=== PATIENT | male | born 1945 | race Caucasian/White ===

== ENCOUNTER 2018-09-30 15:28 | Inpatient (IN) | payer MEDICARE, BC ==
--- NOTE | 2018-09-30 15:45 | ED ---
Palpitations / Dysrhythmia - HPI Summary HPI Summary: This patient is a 73 year old M brought in by EMS to [facility] c/o dizziness for the last week. The patient was seen at the [facility] and sent for Afib. The patient rates the pain 1/10 in severity. He states he has also had SOB with self-measured tachycardia. He compares the SOB with one similar to just finishing a foot race. Patient reports fatigue, nausea, splitting headache , and diaphoresis. Patient denies vomiting and near syncope. He is on an ABX currently and takes 81 mg ASA daily. Father had a KS at 46 and mother did at 78. - History of Current Complaint Chief Complaint: EDDysrhythmPalp Time Seen by Provider: 09/30/18 15:36 Hx Obtained From: Patient Onset/Duration: Lasting Weeks, Still Present Timing: Constant Severity Initially: Moderate Severity Currently: Moderate Character: Fast Associated Signs & Symptoms: Dizzy, Shortness of Breath - Allergy/Home Medications Allergies/Adverse Reactions: Allergies Allergy/AdvReac Type Severity Reaction Status Date / Time No Known Allergies Allergy Verified 09/30/18 15:33 PMH/Surg Hx/FS Hx/Imm Hx Endocrine/Hematology History: Denies: Hx Diabetes, Hx Thyroid Disease Cardiovascular History: Reports: Hx Hypertension Denies: Hx Auto Implanted Cardiovert Defib, Hx Congestive Heart Failure Respiratory History: Denies: Hx Lung Cancer Sensory History: Reports: Hx Contacts or Glasses Opthamlomology History: Reports: Hx Contacts or Glasses Neurological History: Denies: Hx Spinal Cord Injury Psychiatric History: Denies: Hx [facility] Tx - Surgical History Surgery Procedure, Year, and Place: L shoulder replacement, hernia repair Infectious Disease History: No Infectious Disease History: Denies: Traveled Outside the [place] in Last 30 Days - Family History Known Family History: Positive: Cardiac Disease, Hypertension - Social History Alcohol Use: Occasionally Substance Use Type: Reports: None Smoking Status (MU): Former Smoker Review of Systems Positive: Fatigue, Skin Diaphoresis Positive: Palpitations Positive: Shortness Of Breath Positive: Nausea. Negative: Vomiting Positive: Headache. Negative: Syncope All Other Systems Reviewed And Are Negative: Yes Physical Exam - Summary Physical Exam Summary: VITAL SIGNS: Reviewed. GENERAL: Patient is a well-developed and elderly male who is lying comfortable in the stretcher. Patient is not in any acute respiratory distress. HEAD AND FACE: No signs of trauma. No ecchymosis, hematomas or skull depressions. No sinus tenderness. EYES: PERRLA, EOMI x 2, No injected conjunctiva, no nystagmus. EARS: Hearing grossly intact. Ear canals and tympanic membranes are within normal limits. MOUTH: Oropharynx within normal limits. NECK: Supple, trachea is midline, no adenopathy, no JVD, no carotid bruit, no c- spine tenderness, neck with full ROM. CHEST: Symmetric, no tenderness at palpation LUNGS: Clear to auscultation bilaterally. No wheezing or crackles. CVS: IRRegular rate and rhythm, S1 and S2 present, no murmurs or gallops appreciated. ABDOMEN: Soft, non-tender. No signs of distention. No rebound no guarding, and no masses palpated. Bowel sounds are normal. EXTREMITIES: FROM in all major joints, no edema, no cyanosis or clubbing. NEURO: Alert and oriented x 3. No acute neurological deficits. Speech is normal and follows commands. SKIN: Dry and warm Triage Information Reviewed: Yes Vital Signs On Initial Exam: Initial Vitals Temp Pulse Resp BP Pulse Ox 99.2 F 106 20 110/72 96 09/30/18 15:32 09/30/18 15:32 09/30/18 15:32 09/30/18 15:32 09/30/18 15:32 Vital Signs Reviewed: Yes Diagnostics - Vital Signs Vital Signs Temp Pulse Resp BP Pulse Ox 09/30/18 15:32 99.2 F 106 20 110/72 96 - Laboratory Result Diagrams: 09/30/18 16:24 09/30/18 16:24 Lab Statement: Any lab studies that have been ordered have been reviewed, and results considered in the medical decision making process. - Radiology CXR Radiology Interpretation Completed By: Radiologist Summary of Radiographic Findings: No evidence for acute disease. ED physician has reviewed this report. - EKG 16:17 Cardiac Rate: Other Rate - 122 BPM EKG Rhythm: Atrial Fibrillation - with RVR EKG Comparison: No Significant Change - Similar to EKG taken earlier today [] at [facility] Summary of EKG Findings: No STEMI. Re-Evaluation - Re-Evaluation First Eval Re-Evaluation Time: 18:15 Change: Unchanged Comment: We discussed admission to [facility]. The patient agrees. Course/Dx - Course Assessment/Plan: This patient is a 73 year old M brought in by EMS [facility] c/o dizziness for the last week. The patient was seen at the [facility] and sent for Afib. The patient rates the pain 1/10 in severity. He states he has also had SOB with self-measured tachycardia. He compares the SOB with one similar to just finishing a foot race. Patient reports fatigue, nausea, splitting headache, and diaphoresis. Patient denies vomiting and near syncope. He is on an ABX currently and takes 81 mg ASA daily. Father had a KS at 46 and mother did at 78. Blood work without any significant abnormality except for slight anemia, sodium 134, BUN is 34 creatinine is 1.68. Glucose is 127, magnesium was 1.8, CPK-MB is 6.5, troponin 0.02, and BNP at 367. Chest x-ray impression: No acute pathology. EKG shows that the patient is in atrial fibrillation with RVR. The patient was given Cardizem IV boluses, and the heart rate has improved. At this point, I discussed my physical exam, findings and test results with Dr. Mahajan from the hospital services to course the patient for admission. - Diagnoses Differential Diagnosis/HQI/PQRI: Positive: Hypokalemia, Medication Induced, Paroxymal SVT, V-Tach Provider Diagnoses: Atrial fibrillation with RVR - Physician Notifications Discussed Care Of Patient With: Kevin Mahajan Time Discussed With Above Provider: 18:35 Instructed by Provider To: Other - Dr. Mahajan accepts the patient for admission. Discharge - Sign-Out/Discharge Documenting (check all that apply): Patient Departure - Patient will be admitted to [facility] for further care by Dr. Mahajan. - Discharge Plan Condition: Stable Disposition: ADMITTED TO [facility] Referrals: Geneva JON,Zain Snider [Primary Care Provider] - - Billing Disposition and Condition Condition: STABLE Disposition: Admitted to [facility] - Attestation Statements Document Initiated by Scribe: Yes Documenting Scribe: Leo Mohan Provider For Whom Scribe is Documenting (Include Credential): Fernando Rojo MD Scribe Attestation: ILeo , scribed for Fernando Rojo MD on 09/30/18 at 1839. Scribe Documentation Reviewed: Yes Provider Attestation: The documentation as recorded by the Leo nuñez accurately reflects the service I personally performed and the decisions made by me, Fernando Rojo MD Status of Julio C Document: Viewed
[2018-09-30] MEDS: Diltiazem IV* 5 MG/ML 5 ML VIAL (for loading dose/IV Push) (25 MG) IV SLOW PU ONE ×2 (16:31→16:39)
[2018-09-30] MEDS ORDERED: NS 0.9% 1000 ML*IV.FLUID IV ONE (16:31)
[2018-09-30 16:36] LABS: ABS Basophils 0 10^3/ul (0-0.2); ABS Eosinophils 0.2 10^3/ul (0-0.6); ABS Lymphocytes 0.9 10^3/ul (1.0-4.8); ABS Monocytes 0.7 10^3/ul (0-0.8); ABS Neutrophils 3.8 10^3/ul (1.5-7.7); ABS Nucleated RBC 0 10^3/ul; Eosinophil % 2.9 %; Hematocrit 39 % (42-52); Hemoglobin 13.6 g/dl (14.0-18.0); Lymphocyte % 15.2 %; Mean Corpuscular HGB Conc 35 g/dl (31-36); Mean Corpuscular Hemoglobin 30 pg (27-31); Mean Corpuscular Volume 88 fL (80-94); Mean Platelet Volume 7.2 fL (7.4-10.4); Nucleated Red Blood Cells % 0; Platelet Count 213 10^3/ul (150-450); Red Blood Count 4.47 10^6/ul (4.00-5.40); Red Cell Distribution Width 14 % (10.5-15); White Blood Count 5.6 10^3/ul (3.5-10.8)
[2018-09-30 16:48] LABS: Activated Partial Thrombo Time 29.1 seconds (26.0-36.3)
[2018-09-30 16:55] LABS: Albumin 4.1 g/dL (3.2-5.2); Albumin/Globulin Ratio 1.6 (1-3); BUN/Creatinine Ratio 20.2 (8-20); EGFR Non-African American 40.4 (>60); Globulin 2.6 g/dL (2-4); Magnesium 1.8 mg/dL (1.9-2.7); Potassium 4.1 mmol/L (3.5-5.0); Total Bilirubin 0.6 mg/dL (0.2-1.0); Total Protein 6.7 g/dL (6.4-8.9)
[2018-09-30 17:19] LABS: TSH (Thyroid Stimulating Horm) 2.37 mcIU/mL (0.34-5.60)
[2018-09-30] MEDS ORDERED: Diltiazem IV VIAL* 125 MG in NS 0.9% 100 ML* 100 ML IVPB ONE (18:31)
[2018-09-30] MEDS ORDERED: NS 0.9% 1000 ML* 1,000 ML IV ONE (18:38)
[2018-09-30] MEDS ORDERED: Metoprolol Tartrate IV* 1 MG/ML 5 ML VIAL IV ONE (20:02)
[2018-09-30] MEDS ORDERED: Ciprofloxacin TAB* 250 MG PO SCH (21:30)
--- NOTE | 2018-09-30 21:34 | HP ---
HISTORY AND PHYSICAL: DATE OF ADMISSION: 09/30/18 TIME OF ADMISSION: 7:30 p.m. PRIMARY CARE PHYSICIAN: Dr. Zain Bean, [facility] CHIEF COMPLAINT: Sweats, lethargy, and shortness of breath. HISTORY OF PRESENT ILLNESS: This is a 73-year-old man with history of hypertension, who presents to the emergency department with 1 week of not feeling well. He has multiple vague symptoms including nausea, achiness, headache, and feeling very tired. He has been sleeping much more than usual. He was worried he had the flu. He felt "overall crummy," but had no localizing symptoms. He denied any fevers, cough, chest pain, dysuria, or diarrhea. He had no sick contacts. He has taken no recent trips. He did note some trouble catching his breath recently but has remained active and went for a walk with his yesterday. He is currently being treated for prostatitis by his PCP with Bactrim (28 day course total). He still has 6 days left of the antibiotic. He denies weight gain, weight loss, or orthopnea. He does think his urine output may have decreased since being on the Bactrim; however, he also noted decreased intake since he has not been feeling well. He has tried to maintain his p.o. intake with soups and liquids. He has not had any chest pain or palpitations. He went to urgent care and was found to be in atrial fibrillation with RVR so was transferred to the ED. Here he was given IV diltiazem and placed on a diltiazem drip and he feels a little better, but still tired. PAST MEDICAL HISTORY: 1. Hypertension. 2. BPH. 3. Prostatitis, currently on antibiotics. 4. History of hernia repair. 5. History of shoulder replacement. 6. Degenerative disk disease at L4-L5. HOME MEDICATIONS: 1. Aspirin 81 mg daily. 2. Lisinopril/HCTZ 20/25 mg daily. 3. Bactrim DS daily for 6 more days. FAMILY HISTORY: His dad had an CT at age 46 and of an aortic aneurysm at age 70 and his mom of an CT at age 78. SOCIAL HISTORY: He quit smoking in 1975. He occasionally drinks a beer. His emergency contact is his , Toshia. Toshia's phone number is [phone]. PHYSICAL EXAMINATION GENERAL: Alert, well-appearing man, in no distress. He is resting comfortably on the bed. VITAL SIGNS: Temperature 99.2; heart rate was 142 at presentation, currently 120; respiratory rate 19; pulse ox 94% on room air; blood pressure 105/80. HEENT: Pupils 5 mm bilaterally and reactive to light. Oral mucosa is dry. No pharyngeal exudates or erythema. NECK: No JVP. No cervical adenopathy. LUNGS: Clear bilaterally with no wheezes or rhonchi. CHEST: Tachycardic, no murmurs. PMI is nondisplaced. ABDOMEN: Soft, nontender, nondistended. No guarding or rebound. No CVA tenderness. EXTREMITIES: No edema, rashes, or ulcers. DIAGNOSTIC STUDIES/LAB DATA: Sodium 137, potassium 4.1, chloride 104, BUN 34, creatinine 1.68 with no baseline, glucose 127, lactic acid 0.9, magnesium 1.8. CK 184, TSH 2.37. White blood cells 5.6, hemoglobin 13.6, platelets 213. Imaging: Chest x-ray shows no evidence for acute disease. EKG: Shows AFib with a normal axis, normal QRS and QT with no ST or T wave changes. ASSESSMENT AND PLAN: This is a 73-year-old man with history of hypertension, who presents with 1 week of not feeling well and is found to have atrial fibrillation with rapid ventricular response. 1. Atrial fibrillation with rapid ventricular response. He is currently hemodynamically stable. The etiology of his atrial fibrillation is unclear and the differential remains broad and includes cardiomyopathy, thromboembolism, infection. I am ordering an echocardiogram for tomorrow. He is not currently rate controlled on the cardizem drip. My goal for his heart rate is 110. I am giving him a now dose of IV metoprolol and a p.o. dose of metoprolol. I have discussed his stroke risk with him and his and recommended therapeutic anticoagulation. They agree that the risk of stroke outweighs the risk bleeding at this time. His creatinine is over 1.5, but he meets criteria to start Eliquis 5 mg twice a day. His CHAD2/VASc is at least 2 for age and hypertension. Given his elevated D-dimer, pulmonary embolism is also in the differential. I cannot get a CTA given his creatinine currently, but I would like to start with an echocardiogram tomorrow and if his right ventricular function is decreased, a CTA may be warranted and hopefully by then his creatinine will have improved. 2. Acute kidney injury. I suspect this may be related to the Bactrim that he has been on, however, he does also report poor p.o. intake. I am discontinuing the Bactrim and putting him on IV fluids overnight. We will recheck his creatinine in the morning. 3. Elevated D-dimer. If he truly has prostatitis that he is being treated for this could cause an elevated D-dimer but as mentioned above, pulmonary embolism is included on the differential for the etiology of his atrial fibrillation with rapid ventricular response. 4. Prostatitis. I am switching him to Cipro renally dosed. 5. Myalgias and lethargy. Check flu swab, urinalysis, and CK. 6. Hypertension. I am holding his home meds to allow us room to titrate rate controlling medications in place of lisinopril and hydrochlorothiazide. 7. DVT prophylaxis. Contraindicated in the setting of therapeutic anticoagulation. 8. Diet. Unrestricted. [id number]/[place] #: [id number] MICAH
[2018-09-30] MEDS: Metoprolol Tartrate TAB* 25 MG PO SCH (21:56)
[2018-09-30] MEDS: Apixaban* 5 MG TAB PO SCH (23:36)
[2018-09-30] MEDS: Ciprofloxacin TAB* 250 MG PO SCH (23:36)
[2018-09-30] MEDS: NS 0.9% 1000 ML* 1,000 ML IV SCH (23:38)
[2018-10-01] MEDS: Diltiazem IV VIAL* 125 MG in NS 0.9% 100 ML* 100 ML IVPB ONE (03:01)
[2018-10-01] MEDS: NS 0.9% 1000 ML* 1,000 ML IV SCH ×3 (04:28→16:47)
[2018-10-01 06:27] LABS: ABS Basophils 0.1 10^3/ul (0-0.2); ABS Eosinophils 0.2 10^3/ul (0-0.6); ABS Lymphocytes 1.1 10^3/ul (1.0-4.8); ABS Monocytes 0.6 10^3/ul (0-0.8); ABS Neutrophils 3.1 10^3/ul (1.5-7.7); ABS Nucleated RBC 0 10^3/ul; Eosinophil % 4.6 %; Hematocrit 39 % (42-52); Hemoglobin 13.2 g/dl (14.0-18.0); Lymphocyte % 22.2 %; Mean Corpuscular HGB Conc 34 g/dl (31-36); Mean Corpuscular Hemoglobin 30 pg (27-31); Mean Corpuscular Volume 89 fL (80-94); Mean Platelet Volume 6.9 fL (7.4-10.4); Nucleated Red Blood Cells % 0.1; Platelet Count 198 10^3/ul (150-450); Red Blood Count 4.38 10^6/ul (4.00-5.40); Red Cell Distribution Width 14 % (10.5-15); White Blood Count 5.1 10^3/ul (3.5-10.8)
[2018-10-01 06:44] LABS: Albumin 3.7 g/dL (3.2-5.2); Albumin/Globulin Ratio 1.2 (1-3); BUN/Creatinine Ratio 19.7 (8-20); Calcium 9.1 mg/dL (8.6-10.3); EGFR Non-African American 47.1 (>60); Globulin 3.2 g/dL (2-4); Potassium 4.6 mmol/L (3.5-5.0); Total Bilirubin 0.7 mg/dL (0.2-1.0); Total Protein 6.9 g/dL (6.4-8.9)
[2018-10-01] MEDS: Apixaban* 5 MG TAB PO SCH ×2 (08:18→21:06)
[2018-10-01] MEDS: Multivitamins/Minerals TAB PO SCH (08:18)
[2018-10-01] MEDS: Aspirin EC TAB* 81 MG TAB.EC PO SCH (08:18)
[2018-10-01] MEDS: Metoprolol Tartrate TAB* 25 MG PO SCH ×3 (08:18→21:06)
[2018-10-01] MEDS ORDERED: Metoprolol Tartrate TAB* 25 MG PO ONE (09:06)
--- NOTE | 2018-10-01 11:32 | ECHO ---
Patient: ZAIN ALCANTAR [facility] Rec#: [id number] : 1945 Date: 10/01/2018 Age: 73y Height: 175 cm / 68.9 in Weight: 103.6 kg / 228.3 lbs Sex: M BSA: 2.18 Room#: 453 Admit Date#: 09/30/2018 Type: Inpatient Referring: Mary Pope MD Reading: Gopi Candelaria MD Residential Sales Representative: Lashae Mayo RDCS CC: Zain Bean MD Transthoracic Echocardiogram Indication: Abnormal EKG, atrial fibrillation with RVR BP: 119/84 HR: 116 Rhythm: A-Fib Findings History: Former smoker, HTN. Technical Comments: The study quality is fair. Completed at 0815. Left Ventricle: The left ventricular chamber size is normal. Mild concentric left ventricular hypertrophy is observed. Global left ventricular wall motion and contractility are within normal limits. Left ventricular systolic function is at the lower limits of normal. The estimated ejection fraction is 50-55%. The assessment of diastolic function is non-diagnostic. Left Atrium: The left atrium is severely dilated. Right Ventricle: Moderator Band present. The right ventricle is mildly dilated. The right ventricular global systolic function is mildly reduced. Right Atrium: The right atrium is moderately dilated. Aortic Valve: The aortic valve is trileaflet. The aortic valve leaflets are mildly thickened. There is no evidence of aortic regurgitation. There is no evidence of aortic stenosis. Mitral Valve: The mitral valve leaflets are mildly thickened. There is mild mitral regurgitation. There is no evidence of mitral stenosis. Tricuspid Valve: The tricuspid valve leaflets are normal. There is trace tricuspid regurgitation. Unable to estimate the right ventricular systolic pressure. There is no tricuspid stenosis. Pulmonic Valve: The pulmonic valve appears normal. There is trace to mild pulmonic regurgitation. There is no pulmonic stenosis. Pericardium: There is no significant pericardial effusion. A pericardial fat pad is visualized. Aorta: There is mild dilatation of the ascending aorta. There is no dilatation of the aortic arch. There is mild dilatation of the aortic root. Pulmonary Artery: The main pulmonary artery appears normal. Venous: The inferior vena cava is dilated. There is a greater than 50% respiratory change in the inferior vena cava dimension. Summary: There was not any prior study for comparison. Conclusions Global left ventricular wall motion and contractility are within normal limits. Left ventricular systolic function is at the lower limits of normal. The estimated ejection fraction is 50-55%. There is no evidence of aortic stenosis. There is mild mitral regurgitation. There is trace tricuspid regurgitation. Unable to estimate the right ventricular systolic pressure. There is no significant pericardial effusion. Measurements Name Value Normal Range RVIDd (AP) 2D 3.4 cm (0.9 - 2.6) RVDdMajor (2D) 4.6 cm (2.2 - 4.4) RAd ISD 4CH 5.9 cm (3.4 - 4.9) RA (A4C)W 6.1 cm (2.9 - 4.6) IVSd (2D) 1.2 cm (0.6 - 1) LVPWd (2D) 1.2 cm (0.6 - 1) LVIDd (2D) 3.6 cm (3.6 - 5.4) LVIDs (2D) 2.7 cm - LV FS (2D) 23 % (25 - 45) Aortic Annulus 1.9 cm (1.4 - 2.6) Ao root diameter (2D) 3.9 cm (2.1 - 3.5) Ascending Ao 3.9 cm (2.1 - 3.4) Aortic arch 2.9 cm (1.8 - 3.4) LA dimension (AP) 2D 4.6 cm (2.3 - 3.8) LAd ISD 4CH 7 cm (2.9 - 5.3) LA ISD 4CH W 5.4 cm (2.5 - 4.5) Name Value Normal Range LA ESV BP (A/L) index 59 ml/m2 - Name Value Normal Range MV E-wave Vmax 0.8 m/sec - MV deceleration time 126 msec - MV A-wave Vmax 0.3 m/sec - MV E:A ratio 2.3 ratio - LV septal e' Vmax 0.1 m/sec - LV lateral e' Vmax 0.11 m/sec - LV E:e' septal ratio 8 ratio - LV E:e' lateral ratio 7.3 ratio - Name Value Normal Range AV Vmax 1 m/sec - AV VTI 16 cm - AV peak gradient 4 mmHg - AV mean gradient 2 mmHg - LVOT Vmax 0.8 m/sec - LVOT VTI 14 cm - LVOT peak gradient 3 mmHg - LVOT mean gradient 1 mmHg - NAIDA Vmax 0.5 m/sec - Name Value Normal Range IVC diameter 2.4 cm - Name Value Normal Range PV Vmax 1.2 m/sec - PV peak gradient 6 mmHg -
[2018-10-01] MEDS ORDERED: Digoxin TAB* 0.25 MG PO ONE (15:56)
[2018-10-01] MEDS ORDERED: Iodixanol* (CONTRAST) 320 MG/ML 100 ML SDV IV ONE (16:02)
--- NOTE | 2018-10-01 16:03 | PN ---
Subjective Date of Service: 10/01/18 Interval History: Patient feels better but remains mildly dyspenic. No chest pain. Remains on tele, pulse remains in the low 100's. BP 109/60's on IVF 125 ml per hours. appetite is better, no nausea no chest pain. no diarrhea Family History: Unchanged from Admission Social History: Unchanged from Admission Objective Active Medications: Apixaban (Eliquis*) 5 mg PO BID [facility] Last Admin: 10/01/18 08:18 Dose: 5 mg Aspirin (Aspirin Ec Tab*) 81 mg PO DAILY [facility] Last Admin: 10/01/18 08:18 Dose: 81 mg Ciprofloxacin (Cipro Tab*) 250 mg PO Q18H [facility] Last Admin: 09/30/18 23:36 Dose: 250 mg Digoxin (Lanoxin Tab*) 0.25 mg PO ONCE ONE Stop: 10/01/18 15:57 Diltiazem HCl 125 mg/ Sodium (Chloride) 125 mls @ 3 mls/hr IVPB ED ONCE ONE; Protocol Stop: 10/02/18 12:10 Last Admin: 10/01/18 03:01 Dose: 3 mls/hr Sodium Chloride (Ns 0.9% 1000 Ml*) 1,000 mls @ 80 mls/hr IV PER RATE [facility] Metoprolol Tartrate (Lopressor Tab*) 25 mg PO Q12HR [facility] Last Admin: 10/01/18 09:08 Dose: Not Given Multivitamins/Minerals (Theragran/Minerals Tab*) 1 tab PO DAILY [facility] Last Admin: 10/01/18 08:18 Dose: 1 tab Vital Signs - 8 hr 10/01/18 10/01/18 10/01/18 08:00 08:18 09:11 Temperature Respiratory 16 Rate Blood Pressure 111/86 116/84 (mmHg) 10/01/18 10/01/18 10/01/18 10:53 11:11 13:11 Temperature 98.5 F Respiratory 20 Rate Blood Pressure 116/89 104/76 (mmHg) Oxygen Devices in Use Now: None Appearance: awake, Alert no acute distress. NO chills Eyes: No Scleral Icterus, - - EOMI Ears/Nose/Mouth/Throat: NL Teeth, Lips, Gums, Mucous Membranes Moist Neck: NL Appearance and Movements; NL JVP, Trachea Midline Respiratory: Symmetrical Chest Expansion and Respiratory Effort, Clear to Auscultation Cardiovascular: NL Sounds; No Murmurs; No JVD, No Edema, - - irregularly irregular Abdominal: NL Sounds; No Tenderness; No Distention Lymphatic: No Cervical Adenopathy Extremities: No Edema Skin: No Rash or Ulcers Neurological: Alert and Oriented x 3, NL Muscle Strength and Tone Result Diagrams: 10/01/18 06:21 10/01/18 06:21 Microbiology and Other Data: Microbiology 09/30/18 21:38 Influenza Types A,B Antigen - Final Nasopharyngeal Specimen received for Influenza A/B Molecular testing Assess/Plan/Problems-Billing Assessment: 73 y/o male admitted for generalized malaize, SOB and GI symptoms found to be in Afib and RVR, NERY and elevated D-Dimers s/p cardizem drip, IVF and Echo. Started on lopressor and eliquis - Patient Problems (1) New onset a-fib Current Visit: Yes Status: Acute Code(s): I48.91 - UNSPECIFIED ATRIAL FIBRILLATION SNOMED Code(s): 72288616 Comment: - Echo 10/01/17 normal EF 55%, right ventricular dialated and mild TR - currently on lopressor 25 mg Q12hrs, Will start him one dose of po digoxin 0.25 mg x1 given his low soft BP 100's/60's and pulse in the 110's - Will continue IVF and maintain him at 80 ml/hr s/p 24 hrs of 125 ml per hour - given his elevated D-dimers and right ventricular strain I will pursue his CTA chest rule out PE if GFR allows (2) Acute kidney injury Current Visit: Yes Status: Acute Code(s): N17.9 - ACUTE KIDNEY FAILURE, UNSPECIFIED SNOMED Code(s): 77370593 Comment: - Off his HCTZ and lisinopril with combination of bactrim as outpatient. - IVF @ 125 ml/hr and will decrease to 80 ml per hour - Creatinine and GFR slightly better. (3) Prostatitis Current Visit: Yes Status: Acute Code(s): N41.9 - INFLAMMATORY DISEASE OF PROSTATE, UNSPECIFIED SNOMED Code(s): 8467034 Comment: - Off Bactrim. Currently on Cipro IV to complete his outpatient course (4) D-dimer, elevated Current Visit: Yes Status: Acute Code(s): R79.89 - OTHER SPECIFIED ABNORMAL FINDINGS OF BLOOD CHEMISTRY SNOMED Code(s): 176513957 Comment: - Echo 10/01/17 normal EF 55%, right ventricular dialated and mild TR - Will continue IVF and maintain him at 80 ml/hr s/p 24 hrs of 125 ml per hour - given his elevated D-dimers and right ventricular strain I will pursue his CTA chest rule out PE if GFR allows (5) DVT prophylaxis Current Visit: Yes Status: Acute Code(s): DUM1353 - SNOMED Code(s): 482233432 Comment: on eliquis 5 mg bid
[2018-10-01] MEDS: Ciprofloxacin TAB* 250 MG PO SCH (16:47)
[2018-10-02] MEDS: NS 0.9% 1000 ML* 1,000 ML IV SCH ×2 (01:24→15:27)
[2018-10-02 06:40] LABS: ABS Basophils 0 10^3/ul (0-0.2); ABS Eosinophils 0.2 10^3/ul (0-0.6); ABS Lymphocytes 1.2 10^3/ul (1.0-4.8); ABS Monocytes 0.6 10^3/ul (0-0.8); ABS Neutrophils 3.2 10^3/ul (1.5-7.7); ABS Nucleated RBC 0 10^3/ul; Hematocrit 37 % (42-52); Hemoglobin 12.8 g/dl (14.0-18.0); Lymphocyte % 23.3 %; Mean Corpuscular HGB Conc 35 g/dl (31-36); Mean Corpuscular Hemoglobin 30 pg (27-31); Mean Corpuscular Volume 87 fL (80-94); Mean Platelet Volume 6.7 fL (7.4-10.4); Nucleated Red Blood Cells % 0.1; Platelet Count 201 10^3/ul (150-450); Red Blood Count 4.21 10^6/ul (4.00-5.40); Red Cell Distribution Width 14 % (10.5-15); White Blood Count 5.3 10^3/ul (3.5-10.8)
[2018-10-02 07:00] LABS: BUN/Creatinine Ratio 20.3 (8-20); Calcium 9.2 mg/dL (8.6-10.3); EGFR Non-African American 60.7 (>60); Magnesium 1.8 mg/dL (1.9-2.7); Phosphorus 3.3 mg/dL (2.5-5.0); Potassium 4.3 mmol/L (3.5-5.0)
[2018-10-02] MEDS: Diltiazem IV VIAL* 125 MG in NS 0.9% 100 ML* 100 ML IVPB ONE (07:05)
[2018-10-02] MEDS ORDERED: Diltiazem IV VIAL* 125 MG in NS 0.9% 100 ML* 100 ML IV SCH (08:00)
[2018-10-02] MEDS ORDERED: Magnesium Oxide TAB* 400 MG PO ONE (09:07)
[2018-10-02] MEDS: Aspirin EC TAB* 81 MG TAB.EC PO SCH (09:25)
[2018-10-02] MEDS: Apixaban* 5 MG TAB PO SCH ×2 (09:25→19:42)
[2018-10-02] MEDS: Ciprofloxacin TAB* 250 MG PO SCH (09:26)
[2018-10-02] MEDS: Multivitamins/Minerals TAB PO SCH (09:26)
[2018-10-02] MEDS: Metoprolol Tartrate TAB* 25 MG PO SCH ×3 (09:26→19:42)
[2018-10-02] MEDS ORDERED: Digoxin TAB* 0.25 MG PO ONE (12:03)
--- NOTE | 2018-10-02 12:17 | PN ---
Subjective Date of Service: 10/02/18 Interval History: Patient seen today. No acute complains. He is feeling much better. CTA chest negative for PE. Echo noted EF 55%. Remain on cardizem drip at 3 mg / hr. Will wean off and titrate his Lopressor to 25 mg po Q8hr today and if BP allows will increase to 50 mg bid in am. Also I did give one dose of digoxin 0.25 mg yesterday as his BP was low. Will give one dose of digoxin today as he is in the 110's. I did suggest cardiology consult and patient did request Dr. Candelaria. I will make referral for outpatient follow up with Dr. Candelaria upon discharge. Family History: Unchanged from Admission Social History: Unchanged from Admission Objective Active Medications: Apixaban (Eliquis*) 5 mg PO BID [facility] Last Admin: 10/02/18 09:25 Dose: 5 mg Aspirin (Aspirin Ec Tab*) 81 mg PO DAILY [facility] Last Admin: 10/02/18 09:25 Dose: 81 mg Ciprofloxacin (Cipro Tab*) 250 mg PO Q18H [facility] Last Admin: 10/02/18 09:26 Dose: 250 mg Digoxin (Lanoxin Tab*) 0.25 mg PO ONCE ONE Stop: 10/02/18 12:04 Sodium Chloride (Ns 0.9% 1000 Ml*) 1,000 mls @ 80 mls/hr IV PER RATE [facility] Last Admin: 10/02/18 01:24 Dose: 80 mls/hr Metoprolol Tartrate (Lopressor Tab*) 25 mg PO Q8H [facility] Multivitamins/Minerals (Theragran/Minerals Tab*) 1 tab PO DAILY [facility] Last Admin: 10/02/18 09:26 Dose: 1 tab Vital Signs - 8 hr 10/02/18 10/02/18 10/02/18 05:11 07:11 08:00 Temperature Pulse Rate Respiratory 18 Rate Blood Pressure 113/75 113/76 (mmHg) O2 Sat by Pulse Oximetry 10/02/18 10/02/18 08:06 09:22 Temperature 97.8 F Pulse Rate 107 Respiratory 16 Rate Blood Pressure 125/76 (mmHg) O2 Sat by Pulse 97 Oximetry Oxygen Devices in Use Now: None Appearance: Awake, alert,. No distress Eyes: No Scleral Icterus, - - EOMI Ears/Nose/Mouth/Throat: NL Teeth, Lips, Gums, Mucous Membranes Moist Neck: NL Appearance and Movements; NL JVP, Trachea Midline Respiratory: Symmetrical Chest Expansion and Respiratory Effort, Clear to Auscultation Cardiovascular: NL Sounds; No Murmurs; No JVD, No Edema, - - irregularly irregular Abdominal: NL Sounds; No Tenderness; No Distention Lymphatic: No Cervical Adenopathy Extremities: No Edema Skin: No Rash or Ulcers, No Nodules or Sclerosis Neurological: Alert and Oriented x 3 Result Diagrams: 10/02/18 06:32 10/02/18 06:32 Microbiology and Other Data: Microbiology 09/30/18 21:38 Influenza Types A,B Antigen - Final Nasopharyngeal Specimen received for Influenza A/B Molecular testing Assess/Plan/Problems-Billing Assessment: 73 y/o male admitted for generalized malaize, SOB and GI symptoms found to be in Afib and RVR, NERY and elevated D-Dimers s/p cardizem drip, IVF and Echo. Started on lopressor and eliquis - Patient Problems (1) New onset a-fib Current Visit: Yes Status: Acute Code(s): I48.91 - UNSPECIFIED ATRIAL FIBRILLATION SNOMED Code(s): 04589182 Comment: - Echo 10/01/17 normal EF 55%, right ventricular dialated and mild TR - currently on lopressor 25 mg Q12hrs, s/p po digoxin 0.25 mg x1 on 10/01/17 given his low soft BP 100's/60's and pulse in the 110's. - I will increase his lopressor to 25 mg q8hrs today, given one more dose of digoxin and will discontinue his cardizem drip (currently at 3 mg/hr) - Will continue IVF and maintain him at 80 ml/hr s/p 24 hrs of 125 ml per hour - given his elevated D-dimers and right ventricular strain I did pursue his CTA chest rule out PE and it was negative (2) Acute kidney injury Current Visit: Yes Status: Acute Code(s): N17.9 - ACUTE KIDNEY FAILURE, UNSPECIFIED SNOMED Code(s): 06986032 Comment: - Off his HCTZ and lisinopril with combination of bactrim as outpatient. - s/p IVF @ 125 ml/hr and will decrease to 80 ml per hour - Creatinine and GFR slightly better. (3) Prostatitis Current Visit: Yes Status: Acute Code(s): N41.9 - INFLAMMATORY DISEASE OF PROSTATE, UNSPECIFIED SNOMED Code(s): 7332023 Comment: - Off Bactrim. Currently on Cipro IV to complete his outpatient course (4) D-dimer, elevated Current Visit: Yes Status: Acute Code(s): R79.89 - OTHER SPECIFIED ABNORMAL FINDINGS OF BLOOD CHEMISTRY SNOMED Code(s): 375377494 Comment: - Echo 10/01/17 normal EF 55%, right ventricular dialated and mild TR - Will continue IVF and maintain him at 80 ml/hr s/p 24 hrs of 125 ml per hour - given his elevated D-dimers and right ventricular strain I did pursue his CTA chest rule out PE and it was negative (5) DVT prophylaxis Current Visit: Yes Status: Acute Code(s): [id number] - SNOMED Code(s): 652475990 Comment: on eliquis 5 mg bid
[2018-10-03] MEDS: Ciprofloxacin TAB* 250 MG PO SCH (05:08)
[2018-10-03] MEDS: Metoprolol Tartrate TAB* 25 MG PO SCH (05:08)
[2018-10-03 07:55] LABS: ABS Basophils 0 10^3/ul (0-0.2); ABS Eosinophils 0.2 10^3/ul (0-0.6); ABS Lymphocytes 1.1 10^3/ul (1.0-4.8); ABS Monocytes 0.6 10^3/ul (0-0.8); ABS Neutrophils 2.7 10^3/ul (1.5-7.7); ABS Nucleated RBC 0 10^3/ul; Eosinophil % 5.1 %; Hematocrit 36 % (42-52); Hemoglobin 12.3 g/dl (14.0-18.0); Mean Corpuscular HGB Conc 34 g/dl (31-36); Mean Corpuscular Hemoglobin 30 pg (27-31); Mean Corpuscular Volume 88 fL (80-94); Mean Platelet Volume 7.3 fL (7.4-10.4); Nucleated Red Blood Cells % 0.1; Platelet Count 207 10^3/ul (150-450); Red Blood Count 4.06 10^6/ul (4.00-5.40); Red Cell Distribution Width 13 % (10.5-15); White Blood Count 4.6 10^3/ul (3.5-10.8)
[2018-10-03 08:13] LABS: BUN/Creatinine Ratio 21.5 (8-20); EGFR Non-African American 67.9 (>60); Magnesium 1.8 mg/dL (1.9-2.7); Phosphorus 3.7 mg/dL (2.5-5.0); Potassium 4.2 mmol/L (3.5-5.0)
[2018-10-03] MEDS: Aspirin EC TAB* 81 MG TAB.EC PO SCH (08:20)
[2018-10-03 08:21] VITALS: BP 112/80
[2018-10-03] MEDS: Multivitamins/Minerals TAB PO SCH (08:21)
[2018-10-03] MEDS: Apixaban* 5 MG TAB PO SCH (08:21)
[2018-10-03] MEDS ORDERED: Metoprolol Tartrate TAB* 25 MG PO ONE (09:50)
[2018-10-03] MEDS ORDERED: Digoxin TAB* 0.25 MG PO ONE (09:51)
[2018-10-03] MEDS ORDERED: Metoprolol Tartrate TAB* 25 MG PO SCH (21:00)
--- NOTE | 2018-10-04 04:15 | DS ---
CC: Dr. Gopi Candelaria; Dr. Zain Bean * DISCHARGE SUMMARY: DATE OF ADMISSION: 09/30/18 DATE OF DISCHARGE: 10/03/18 FINAL DISCHARGE DIAGNOSES: 1. Atrial fibrillation, newly diagnosed. 2. Acute kidney injury secondary to diuretic, hypertension and Bactrim. 3. Prostatitis as an outpatient. 4. Elevated D-dimer. HOSPITAL COURSE: The patient presented to [facility] on 09/30/18 for generalized progressive weakness, lethargy and shortness of breath for the past week or so, not feeling well associated with some nausea, decreased appetite, decreased oral intake, feeling tired, more sleepy than usual. Overall , he did not feel himself and after his persistent symptoms, his insisted him being evaluated in the emergency room where he presented and he was found to be in rapid atrial fibrillation. He was started on Cardizem drip and admitted to medicine service for new-onset AFib, ACS rule out. The patient was seen by me on 10/01/18. His medications were titrated gently. He was started on Lopressor 12.5 and I increased it to 25 mg twice a day. At the same time, I gave him one dose of digoxin 0.25 with the goal to control his heart rate as his blood pressure could not tolerate higher dose of Lopressor. It was in the 100/60. I maintained him on IV fluid and given his elevated D-dimer, I did pursue a CT angiogram to rule out PE only after his creatinine normalized. Of course, his hydrochlorothiazide and lisinopril was held given his hypotension and NERY and Bactrim was switched to Cipro. On the following day, the patient was assessed. His pulse was continued to be slightly transiently elevated. He was remaining on the Cardizem drip, at that time was 3 mg/hour. I was able to wean him off the Cardizem and I titrated his Lopressor to 25 mg p.o. q.8 hours and I gave an additional dose of digoxin of 0.25 mg. I did consult with the patient regarding Cardiology. He did want to be seen by Dr. Gopi Candelaria where we did try to reach Dr. Candelaria and he was not on service for call and the patient elected to see Dr. Candelaria and will make a referral for outpatient service. During the course, he was stable, did not have any urgent need for any intervention or cardiac workup as an inpatient. I kept him on tele, replaced his IV fluids and I decided to keep him an extra day for further rate control, and on the following day, I did increase his Lopressor to 50 mg b.i.d. and again one more addition of digoxin p.o. His CT angiogram did come back negative. His echocardiogram reveals normal EF of 55% without significant valvular disease. The patient's pulse rate was in the mid 80s on the day of discharge. Denies any symptoms. Appetite restored. Eager to go home. I was able to clear him for discharge with followup with Dr. Candelaria as an outpatient. PHYSICAL EXAMINATION: On the day of discharge, his vital signs: Pulse was averaging between 95, 88 and at times it did reach 119, but it was not sustained , it continued to be variable. His blood pressure is improved, tolerating metoprolol 50 b.i.d. at 112/80. Temperature 98.1. Generally, awake, alert, oriented, in no apparent distress. Head and Neck: Normocephalic, atraumatic. Supple. Abdomen: Positive bowel sounds, soft, nontender, nondistended. Cardiovascular: S1, S2. Irregularly irregular. DISCHARGE MEDICATIONS: The patient will be discharged on the followin. Eliquis 5 mg b.i.d. 2. Aspirin 81 mg daily. 3. Digoxin 0.125 mg daily. 4. Metoprolol 50 mg b.i.d. 5. Multivitamin once a day. INPATIENT DIAGNOSTIC STUDIES: Echocardiogram, 09/30/18 reveals atrial fibrillation with RVR, ejection fraction 50%to 55%. The left atrium severely dilated. Right ventricle mildly dilated. No evidence of aortic stenosis. CTA of the chest was negative for PE. No acute pulmonary, thoracic pathology. EKG multiple, confirmed the atrial fibrillations. DISCHARGE INSTRUCTIONS: The patient to follow up with Dr. Candelaria in 1 to 2 weeks. Case discussed with Dr. Gopi Candelaria and I did make him aware of the potential referral for a new patient for a new AFib and I will presume further workup will defer to Dr. Candelaria in regard to further noninvasive testing with nuclear stress testing to rule out underlying ischemia on an elective basis and outpatient. Follow up with primary care, Dr. Zain Bean, as scheduled. The patient to return to the emergency room or seek immediate medical attention if he feels chest pain or palpitation, dizziness, lightheadedness. [id number]/[facility] #: [id number] MICAH
== END 2018-10-03 13:55 | disposition home or self-care (01) | DRG 309 ==
LOC: ED 15:28 → MEDTELE 20:00
PROVIDERS: ADMIT Internal Medicine; ATTEND Internal Medicine
DX: I48.91 Unspecified atrial fibrillation (principal); N17.9 Acute kidney failure, unspecified; I10 Essential (primary) hypertension; N41.9 Inflammatory disease of prostate, unspecified; R79.89 Other specified abnormal findings of blood chemistry; Z96.611 Presence of right artificial shoulder joint; N40.0 Benign prostatic hyperplasia without lower urinary tract symptoms; M51.36 Other intervertebral disc degeneration, lumbar region; M79.10 Myalgia, unspecified site; Z79.01 Long term (current) use of anticoagulants; Z72.89 Other problems related to lifestyle; Z87.891 Personal history of nicotine dependence; Z79.82 Long term (current) use of aspirin; Z82.49 Family history of ischemic heart disease and other diseases of the circulatory system
CPT/HCPCS: 36415; 71045; 71275; 80048; 80053; 82550; 82553; 83605; 83735; 83880; 84100; 84443; 84484; 85025; 85379; 85610; 85730; 93005; 93306; 99284; A9270-GY; Q9967

== ENCOUNTER 2018-11-24 12:20 | Emergency (ER) | payer MEDICARE, BC ==
--- OUTSIDE RECORDS SUMMARY | 2018-11-24 12:29 | XMS REPORT | Continuity of Care Document ---
:1945 External Reference #:[id number] Author Name Brynn Hassan Care Team Providers Name Role Phone Zain Bean MD Primary Care Physician Unavailable Payers Date Identification Numbers Payment Provider Subscriber Policy Number: [id number] Medicare Zain Pagan PayID: [id number] [address] [place] [address] Policy Number: [id number] [facility] Otilia Delaplaine PayID: [id number] [address] [address] [place] [address] Advance Directives Description No Information Available Problems Description No Information Family History Date Family Member(s) Observation Comments : (age 70 Years) Father due to aortic aneurysm Father DC age 46 : (age 78 Years) Mother due to DC Mother Coronary Artery Disease (CAD) Second Sister Atrial Fibrillation Social History Type Date Description Comments Sex Unknown Marital Status Lives With Occupation Retired ETOH Use Occasionally consumed beer in the past Tobacco Use Start: Unknown End: Patient is a former smoker Recreational Drug Use Denies Drug Use Smoking Status Reviewed: 10/30/18 Patient is a former smoker Exercise Type/Frequency Does not exercise Allergies, Adverse Reactions, Alerts Description No Information Medications Medication Date Status Form Strength Qnty SIG Indications Ordering Provider Eliquis Active Tablets 5mg 1 by Unknown 000 mouth twice a day Aspirin Adult Active Tablets DR 81mg 1 by Unknown Low Strength 000 mouth every day Digox Active Tablets 125mcg 1 by Unknown 000 mouth every day Metoprolol Active Tablets 25mg 2 tablet Unknown Tartrate 000 by mouth twice a day Multivitamin Active Tablets 1 by Unknown Adult 000 mouth every day Immunizations Description No Information Available Vital Signs Date Vital Result Comment 10/30/2018 12:49pm Height 69.25 inches 5'9.25" Weight 222.00 lb with shoes Heart Rate 74 /min BP Systolic 100 mmHg Rue reg cuff BP Diastolic 70 mmHg Rue reg cuff BP Systolic Sitting 118 mmHg Lue reg cuff BP Diastolic Sitting 70 mmHg Lue reg cuff BP Systolic Standing 122 mmHg Lue reg cuff BP Diastolic Standing 78 mmHg Lue reg cuff Respiratory Rate 16 /min BMI (Body Mass Index) 32.5 kg/m2 Ejection Fraction 50-55% date 10/01/18 ECHO Results Description No Information Available Procedures Date Code Description Status 10/30/2018 93921 EKG Tracing & Interpretation Completed 10/01/2018 07917 ECHO Transthorasic Realtime 2D W Doppler & Color Flow Hosp Completed Encounters Type Date Location Provider Dx Diagnosis Office Visit 10/30/2018 [facility] Gopi Nevarez I48.91 Unspecified atrial 1:00p Of Lacy Candelaria M.D. fibrillation R94.31 Abnormal electrocardiogram [ECG] [EKG] I10 Essential (primary) hypertension Office Visit 10/03/2018 [facility] N17.9 Acute kidney 11:02a brie Wheat M.D. failure, Hospitalists unspecified I48.91 Unspecified atrial fibrillation N41.9 Inflammatory disease of prostate, unspecified R79.89 Other specified abnormal findings of blood chemistry Office Visit 10/02/2018 [facility] N17.9 Acute kidney 11:02a brie Wheat M.D. failure, Hospitalists unspecified I48.91 Unspecified atrial fibrillation N41.9 Inflammatory disease of prostate, unspecified Office Visit 10/01/2018 [facility] N17.9 Acute kidney 11:02a brie Wheat M.D. failure, Hospitalists unspecified I48.91 Unspecified atrial fibrillation N41.9 Inflammatory disease of prostate, unspecified R79.89 Other specified abnormal findings of blood chemistry Office Visit 09/30/2018 11:01a [facility] N17.9 Acute kidney Assoc,brie Pope DO failure, Hospitalists unspecified I48.91 Unspecified atrial fibrillation N41.9 Inflammatory disease of prostate, unspecified I10 Essential (primary) hypertension Plan of Treatment Future Appointment(s):12/27/2018 9:45 am - Gopi Candelaria M.D. at [facility]11/19/2018 9:30 am - Gopi Candelaria M.D. at [facility]10/30/2018 - Gopi Candelaria M.D.I48.91 Unspecified atrial fibrillationNew Orders:Cardioversion, Ordered: 10/30/18Follow up:2 dphpdmC67.31 Abnormal electrocardiogram [ECG] [EKG]I10 Essential (primary) hypertension
[2018-11-24 12:34] VITALS: BP 163/98
--- NOTE | 2018-11-24 12:44 | UC ---
Cardiac HPI - HPI Summary HPI Summary: 73 yo male presents with shortness of breath. He tells me that he was diagnosed with afib about 2 months ago and admitted to [facility] and placed on blood thinners. On 11/19 he underwent a cardioversion with successful return to NSR per pt. He admits that he did not "take it easy" after this and returned to walking and hiking as he felt great. Later that night developed mild shortness of breath with some dizziness. He attributed it to his elevated BP. This has persisted and seems to be getting worse today - especially with activity...prompting his visit to . Currently he denies headache, cough, chest pain, palpitations, abdominal pain, n/v. - History of Current Complaint Chief Complaint: UCGeneralIllness Stated Complaint: SOB Time Seen by Provider: 11/24/18 12:22 Hx Obtained From: Patient Current Severity: None Pain Intensity: 0 - Allergy/Home Medications Allergies/Adverse Reactions: Allergies Allergy/AdvReac Type Severity Reaction Status Date / Time No Known Allergies Allergy Verified 11/24/18 13:26 PMH/Surg Hx/FS Hx/Imm Hx Cardiovascular History: Cardiac Disease, Hypertension, Atrial Fibrillation - Surgical History Surgical History: Yes Surgery Procedure, Year, and Place: L shoulder replacement, hernia repair - Family History Known Family History: Positive: Cardiac Disease, Hypertension - Social History Occupation: Retired Lives: With Family Alcohol Use: Occasionally Substance Use Type: None Smoking Status (MU): Former Smoker When Did the Patient Quit Smoking/Using Tobacco: 1975 - Immunization History Most Recent Influenza Vaccination: 2018 Most Recent Pneumonia Vaccination: 2011 Review of Systems All Other Systems Reviewed And Are Negative: Yes Constitutional: Positive: Negative Skin: Positive: Negative Eyes: Positive: Negative ENT: Positive: Negative Respiratory: Positive: Shortness Of Breath Cardiovascular: Positive: Negative Gastrointestinal: Positive: Negative Genitourinary: Positive: Negative Neurovascular: Positive: Negative Neurological: Positive: Other - Dizziness Psychological: Positive: Negative Physical Exam - Summary Physical Exam Summary: GENERAL: NAD. WDWN. No pain distress. SKIN: No rashes, sores, lesions, or open wounds. HEENT: Head: AT/NC Eyes: EOM intact. Conjunctiva clear without inflammation or discharge. Ears: Hearing grossly normal. TMs intact, no bulging, erythema, or edema. Nose: Nasal mucosa pink and moist. NTTP maxillary and frontal sinus. Throat: Posterior oropharynx without exudates, erythema, or tonsillar enlargement. Uvula midline. NECK: Supple. Nontender. No lymphadenopathy. CHEST: Decreased breath sounds at lung bases. No accessory muscle use. Breathing comfortably and in no distress. CV: RRR. Pulses intact. Cap refill <2seconds. NEURO: Alert. PSYCH: Age appropriate behavior. Triage Information Reviewed: Yes Vital Signs: Initial Vital Signs Temp 97.6 F 11/24/18 12:31 Pulse 62 11/24/18 12:31 Resp 20 11/24/18 12:31 BP 163/98 11/24/18 12:31 Pulse Ox 97 11/24/18 12:31 Vital Signs Reviewed: Yes - Assessment/Plan Course Of Treatment: EKbpm NSR PAC. No ST changes as read by Dr. Boswell. Discussed with pt that given his recent procedure and current symptoms he requires a further work up in the ED. He was agreeable to this. Currently, I suspect he may have acute CHF s/p cardioversion. He declined ambulance transfer. will drive him to ED. - Clinical Impression Provider Diagnosis: SOB (shortness of breath) Discharge - Sign-Out/Discharge Documenting (check all that apply): Patient Departure All imaging exams completed and their final reports reviewed: No Studies - Discharge Plan Condition: Stable Disposition: HOME-RECOMMEND TO ED Referrals: Geneva JON,Zain Snider [Primary Care Provider] - Additional Instructions: Please go to the ER for further evaluation of your shortness of breath - Billing Disposition and Condition Condition: STABLE Disposition: Home-Recommend to ED
== END 2018-11-24 12:50 | disposition home health service (06) ==
LOC: UCEAST 12:20
DX: R06.02 Shortness of breath (principal); I25.10 Atherosclerotic heart disease of native coronary artery without angina pectoris; I10 Essential (primary) hypertension; I48.91 Unspecified atrial fibrillation; Z79.01 Long term (current) use of anticoagulants; Z96.612 Presence of left artificial shoulder joint; Z87.891 Personal history of nicotine dependence
CPT/HCPCS: 93005; 99212; G0463

== ENCOUNTER 2018-11-24 13:08 | Emergency (ER) | payer MEDICARE, BC ==
--- NOTE | 2018-11-24 13:58 | ED ---
Shortness of Breath - HPI Summary HPI Summary: A 73 y/o M with pert PMHx: a-fib referred [facility] presents to ED with SOB onset four days ago. Patient was cardioverted on 11/19/[address] Candelaria, cardiology. He has had some weakness and noticed having an elevated BP in the 140-150s systolic at times since the cardioversion. Associated sx: mild wheezing , dizziness, pedal edema. Denies CP. Vitals at bedside: HR: 71 bpm, BP: 159/91. 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 - Onset/Duration: Lasting Days, Still Present Current Severity: Moderate Associated Signs & Symptoms: Wheezing - mild, Dizzy, Edema - bilat LE - Allergy/Home Medications Allergies/Adverse Reactions: Allergies Allergy/AdvReac Type Severity Reaction Status Date / Time No Known Allergies Allergy Verified 11/24/18 13:26 PMH/Surg Hx/FS Hx/Imm Hx Previously Healthy: No Endocrine/Hematology History: Denies: Hx Diabetes, Hx Thyroid Disease Cardiovascular History: Reports: Hx Atrial Fibrillation, Hx Hypertension Denies: Hx Angina, Hx Auto Implanted Cardiovert Defib, Hx Congestive Heart Failure Respiratory History: Denies: Hx Lung Cancer GI History: Reports: Other GI Disorders - mesh placement for abd repair in 2005 History: Denies: Hx Renal Disease Musculoskeletal History: Reports: Hx Back Problems, Other Musculoskeletal History - shoulder replacement 2006 Sensory History: Denies: Hx Contacts or Glasses, Hx Hearing Aid Opthamlomology History: Denies: Hx Contacts or Glasses Neurological History: Denies: Hx Spinal Cord Injury Psychiatric History: Denies: Hx [facility] T[facility] - Surgical History Surgery Procedure, Year, and Place: L shoulder replacement, hernia repair Infectious Disease History: No Infectious Disease History: Denies: Traveled Outside the [place] in Last 30 Days - Family History Known Family History: Positive: Cardiac Disease, Hypertension - Social History Occupation: Retired Lives: With Family Alcohol Use: Occasionally Hx Substance Use: No Substance Use Type: Reports: None Hx Tobacco Use: Yes Smoking Status (MU): Former Smoker Review of Systems Negative: Fever Positive: Other - pos: elevated BP. Negative: Chest Pain Positive: Shortness Of Breath, Other - pos: mild wheezing Positive: Edema - bilat LE Neurological: Other - pos: dizzines All Other Systems Reviewed And Are Negative: Yes Physical Exam - Summary Physical Exam Summary: VITAL SIGNS: Reviewed. GENERAL: Patient is a well-developed and nourished MALE who is lying comfortable in the stretcher. Patient is not in any acute respiratory distress. HEAD AND FACE: No signs of trauma. No ecchymosis, hematomas or skull depressions. No sinus tenderness. EYES: PERRLA, EOMI x 2, No injected conjunctiva, no nystagmus. EARS: Hearing grossly intact. Ear canals and tympanic membranes are within normal limits. MOUTH: Oropharynx within normal limits. NECK: Supple, trachea is midline, no adenopathy, no JVD, no carotid bruit, no c- spine tenderness, neck with full ROM. CHEST: Symmetric, no tenderness at palpation LUNGS: Decreased breath sounds. No wheezing or crackles. CVS: Regular rate and rhythm, S1 and S2 present, no murmurs or gallops appreciated. ABDOMEN: Soft, non-tender. No signs of distention. No rebound, no guarding, and no masses palpated. Bowel sounds are normal. EXTREMITIES: FROM in all major joints, no cyanosis or clubbing. 1+ pitting edema in LE. NEURO: Alert and oriented x 3. No acute neurological deficits. Speech is normal and follows commands. SKIN: Dry and warm Triage Information Reviewed: Yes Vital Signs On Initial Exam: Initial Vitals Temp Pulse Resp BP Pulse Ox 98.1 F 56 16 134/92 95 11/24/18 13:22 11/24/18 13:22 11/24/18 13:22 11/24/18 13:22 11/24/18 13:22 Vital Signs Reviewed: Yes Diagnostics - Vital Signs Vital Signs Temp Pulse Resp BP Pulse Ox 11/24/18 13:22 98.1 F 56 16 134/92 95 - Laboratory Result Diagrams: 11/24/18 14:11 11/24/18 14:11 Lab Statement: Any lab studies that have been ordered have been reviewed, and results considered in the medical decision making process. - Radiology CXR Radiology Interpretation Completed By: Radiologist Summary of Radiographic Findings: IMPRESSION: #. Mild subsegmental atelectasis. #. No evidence for pulmonary edema. ED provider has reviewed this report. - CT Chest/Thorax CTA CT Interpretation Completed By: Radiologist Summary of CT Findings: IMPRESSION: #. No evidence for pulmonary embolism. #. Trace bilateral pleural effusions new compared with the prior exam. #. Mildly enlarged mediastinal and hilar lymph nodes new compared with the prior exam. # . Mild cardiomegaly and coronary artery calcifications. ED provider has reviewed this report. - EKG 1300 Cardiac Rate: Bradycardia - 51 bpm EKG Rhythm: Sinus Bradycardia Summary of EKG Findings: No ST elevation. There is T wave inversion in III, which is similar to the previous EKG on 11/19/2018. Re-Evaluation - Re-Evaluation 1 Re-Evaluation Time: 18:00 Change: Improved Comment: Discussing results with pt and plans for D/C home. Course/Dx - Course Assessment/Plan: This patient is a 73-year-old male who presents to the emergency department with a chief complaint of having shortness of breath. The patient denies any chest pain, denies any palpitations, denies any cough, denies any fever or chills. Test results without any significant abnormality except for slight anemia, AST is 50, ALT is 106, BNP is 335. Urinalysis is negative for UTI. Chest x-ray impression: Mild subsegmental atelectasis. No evidence for pulmonary edema. Blood work without any significant abnormality except for slight decrease in the hemoglobin and hematocrit of 12.7 and 37. APTT was 36.6, d-dimer is 462. AST and ALT was slightly elevated. BNP 335. Troponin is 0.01. Urine negative for UTI. Chest x-ray impression: Mild subsegmental atelectasis. No evidence for pulmonary edema. Because the d- dimer was elevated and the patient was complaining of shortness of breat, I decided to do a chest CTA. Impression: There is no evidence for pulmonary embolism. Trace bilateral pleural effusions new compared with the prior exam. Mild enlargement of mediastinal or hilar lymph [id number] compared to prior exam. Mild cardiomegaly and coronary artery calcification. The patient is hemodynamically stable. Patient continues to have normal vital signs and saturation 96 - 97% on room air. Therefore I want to discharge the patient home with follow-up with primary care physician and cardiology. I discussed all the findings and test results with the patient. Patient was instructed to return to the emergency room immediately if any of the symptoms return or worsens. Plan of care was discussed with the patient and understands and agrees. All questions were answered at patient satisfaction. There were no further complaints or concerns. Lung exam before discharge: CTA B/L. Good air exchange. No wheezing or crackles heard. CVS: S1 and S2 present. No murmurs appreciated. Patient is alert and oriented x 3. Patient is hemodynamically stable. Patient will be discharged home with follow up PCP in the next 2-3 days. - Diagnoses Provider Diagnoses: Dyspnea Discharge - Sign-Out/Discharge Documenting (check all that apply): Patient Departure - D/C Patient Received Moderate/Deep Sedation with Procedure: No - Discharge Plan Condition: Stable Disposition: HOME Patient Education Materials: Dyspnea (ED), Shortness of Breath (ED) Referrals: Geneva JON,Zain Snider [Primary Care Provider] - 3 Days Additional Instructions: RETURN TO THE ED FOR ANY WORSENING OR NEW SYMPTOMS. - Billing Disposition and Condition Condition: STABLE Disposition: Home - Attestation Statements Document Initiated by Scribe: Yes Documenting Scribe: Mirela Spring Provider For Whom Rosaleeibe is Documenting (Include Credential): Dr. Fernando Rojo MD Scribe Attestation: IMirela, scribed for Dr. Fernando Rojo MD on 11/24/18 at 1832. Scribe Documentation Reviewed: Yes Provider Attestation: The documentation as recorded by the Mirela nuñez accurately reflects the service I personally performed and the decisions made by , Dr. Fernando Rojo MD Status of Scribe Document: Viewed
[2018-11-24 14:20] LABS: ABS Basophils 0 10^3/ul (0-0.2); ABS Eosinophils 0.1 10^3/ul (0-0.6); ABS Lymphocytes 1.3 10^3/ul (1.0-4.8); ABS Monocytes 0.5 10^3/ul (0-0.8); ABS Neutrophils 3.5 10^3/ul (1.5-7.7); ABS Nucleated RBC 0 10^3/ul; Hematocrit 37 % (42-52); Hemoglobin 12.7 g/dl (14.0-18.0); Lymphocyte % 23.4 %; Mean Corpuscular HGB Conc 34 g/dl (31-36); Mean Corpuscular Hemoglobin 31 pg (27-31); Mean Corpuscular Volume 89 fL (80-94); Nucleated Red Blood Cells % 0; Platelet Count 192 10^3/ul (150-450); Red Blood Count 4.14 10^6/ul (4.00-5.40); Red Cell Distribution Width 14 % (10.5-15); White Blood Count 5.4 10^3/ul (3.5-10.8)
[2018-11-24 14:29] LABS: Activated Partial Thrombo Time 36.6 seconds (26.0-36.3)
[2018-11-24 14:38] LABS: Albumin/Globulin Ratio 1.6 (1-3); BUN/Creatinine Ratio 18.2 (8-20); C Reactive Protein 5.27 mg/L (<8.01); Calcium 9.3 mg/dL (8.6-10.3); EGFR African American 79.6 (>60); EGFR Non-African American 65.8 (>60); Globulin 2.5 g/dL (2-4); Potassium 4.2 mmol/L (3.5-5.0); Total Protein 6.5 g/dL (6.4-8.9)
[2018-11-24 14:40] LABS: Troponin I 0.01 ng/mL (<0.04)
[2018-11-24 14:42] LABS: CKMB ng/mL 5.6 ng/mL (0.6-6.3)
[2018-11-24 15:36] LABS: Urine Appearance Clear; Urine Bilirubin Negative (Negative); Urine Blood Negative (Negative); Urine Color Yellow; Urine Glucose Negative (Negative); Urine Ketones Negative (Negative); Urine Nitrite Negative (Negative); Urine Protein Negative (Negative); Urine Specific Gravity 1.005 (1.010-1.030); Urine Urobilinogen Negative (Negative)
[2018-11-24] MEDS ORDERED: Iohexol 350* (CONTRAST) 500 ML MDV IV ONE (16:48)
[2018-11-24 18:02] VITALS: BP 142/85
== END 2018-11-24 18:01 | disposition home or self-care (01) ==
LOC: ED 13:08
DX: R06.00 Dyspnea, unspecified (principal); J98.11 Atelectasis; I51.7 Cardiomegaly; I25.10 Atherosclerotic heart disease of native coronary artery without angina pectoris; R06.2 Wheezing; R42 Dizziness and giddiness; R60.0 Localized edema; I48.91 Unspecified atrial fibrillation; I10 Essential (primary) hypertension; Z96.612 Presence of left artificial shoulder joint; Z82.49 Family history of ischemic heart disease and other diseases of the circulatory system; Z87.891 Personal history of nicotine dependence
CPT/HCPCS: 36415; 71045; 71275; 80053; 81003; 82553; 83605; 83880; 84484; 85025; 85379; 85730; 86140; 93005; 99283; Q9967

== ENCOUNTER 2019-08-04 09:48 | Emergency (ER) | payer MEDICARE, BC ==
--- OUTSIDE RECORDS SUMMARY | 2019-08-04 09:55 | XMS REPORT | Continuity of Care Document ---
:1945 External Reference #:[id number] Author Name Micha Phillips M.D. Address [address] [place] [address] Care Team Providers Name Role Phone Zain Bean M.D. 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 Onset: 06/30/2019 Combined form of senile cataract Micha Phillips M.D. Onset: 06/30/2019 Social History Type Date Description Comments Sex Unknown ETOH Use Occasionally consumes alcohol Tobacco Use Start: Unknown End: Patient is a former smoker Unknown Recreational Drug Use Denies Drug Use Smoking Status Reviewed: 06/30/19 Patient is a former smoker Allergies, Adverse Reactions, Alerts Active Allergies Reaction Severity Comments Date Latex Mild 06/30/2019 Medications Active Medications SIG Qnty Indications Ordering Provider Date Multaq Take One Tablet Unknown 400mg Tablets By Mouth Twice A Day Eliquis Take One Tablet Unknown 5mg Tablets By Mouth Twice A Day Metoprolol Tartrate Take Two Tablets Unknown 25mg By Mouth Twice A Tablets Day Immunizations Description No Information Available Vital Signs Description No Information Available Results Description No Information Available Procedures Description No Information Available Medical Devices Description No Information Available Encounters Description No Information Available Assessments Date Code Description Provider 06/30/2019 H25.813 Combined forms of age-related cataract, Micha Phillips M.D. bilateral Plan of Treatment 06/30/2019 - Micha Phillips M.D.H25.813 Combined forms of age-related cataract , bilateralComments:Smoking can increase the risk of developing or worsening any eye related disease, as well as affect your overall health. If you are a smoker, we strongly recommend that you quit.If you are not a smoker, we strongly recommend that you do not start. You have been diagnosed with cataracts. If you are happy with your vision as it is now, then we will see you at your next scheduled appointment. If you feel like your vision is getting worse before your scheduled appointment, please call [facility] at .Follow up:1 Year Follow Up Diagnostic Refraction You can expect to have your eyes dilated at your next visit.If Dr. Phillips orders any additional testing , it may require extra time. We recommend that you bring sunglasses, as dilation drops often make you light sensitive until they wear off. We always recommend you bring someone to drive you home if you are uncomfortable driving with your eyes dilated. If you have any questions before your next visit, feel free to call our office at . Functional Status Description No Information Available Mental Status Description No Information Available Referrals Description No Information Available
[2019-08-04 10:26] VITALS: BP 134/84
[2019-08-04] MEDS ORDERED: Acetaminophen TAB* 325 MG PO ONE (10:33)
--- NOTE | 2019-08-04 11:02 | UC ---
Respiratory Complaint HPI - HPI Summary HPI Summary: 74 yo with onset of malaise, congestion and cough x 4 to 5 days ago. Overall normal activity until today, when he has fever and worsening fatigue. Hx of rate controlled a fib. Onset 2 days ago of itching and purulent right eye discharge. - History of Current Complaint Chief Complaint: UCGeneralIllness Stated Complaint: EYE DISCHARGE, SORE THROAT Time Seen by Provider: 08/04/19 10:50 Hx Obtained From: Patient Onset/Duration: Gradual Onset, Lasting Days Timing: Constant Severity Initially: Mild Severity Currently: Moderate Pain Intensity: 0 Character: Cough: Productive Aggravating Factors: Exertion, Recumbent Position Alleviating Factors: Nothing Associated Signs And Symptoms: Positive: Dyspnea, Wheezing, Nasal Congestion - Allergies/Home Medications Allergies/Adverse Reactions: Allergies Allergy/AdvReac Type Severity Reaction Status Date / Time No Known Allergies Allergy Verified 11/24/18 13:26 PMH/Surg Hx/FS Hx/Imm Hx Cardiovascular History: Atrial Fibrillation - Surgical History Surgical History: Yes Surgery Procedure, Year, and Place: L shoulder replacement, hernia repair - Family History Known Family History: Positive: Cardiac Disease, Hypertension - Social History Occupation: Retired Lives: With Family Alcohol Use: Occasionally Substance Use Type: None Smoking Status (MU): Former Smoker When Did the Patient Quit Smoking/Using Tobacco: 1975 - Immunization History Most Recent Influenza Vaccination: 2018 Most Recent Pneumonia Vaccination: 2011 Review of Systems All Other Systems Reviewed And Are Negative: Yes Constitutional: Positive: Fever, Fatigue Skin: Positive: Negative ENT: Positive: Epistaxis - off and on has had bloody nasal discharge., Sinus Congestion Respiratory: Positive: Cough. Negative: Shortness Of Breath Cardiovascular: Negative: Palpitations, Chest Pain Genitourinary: Positive: Negative Motor: Positive: Negative Neurovascular: Positive: Negative Musculoskeletal: Positive: Negative Neurological: Positive: Negative Psychological: Positive: Negative Is Patient Immunocompromised?: No Physical Exam Triage Information Reviewed: Yes Appearance: No Pain Distress, Ill-Appearing - Looks mildly unwell Vital Signs: Initial Vital Signs Temp 100.3 F 08/04/19 10:17 Pulse 62 08/04/19 10:17 Resp 16 08/04/19 10:17 BP 134/84 08/04/19 10:17 Pulse Ox 95 08/04/19 10:17 Eyes: Positive: Conjunctiva Inflamed - right eye with purulent discharge, mild lower lid swelling. ENT: Positive: Pharyngeal erythema, TMs normal Neck: Positive: Supple, Nontender, No Lymphadenopathy Respiratory: Positive: Lungs clear, Decreased breath sounds Cardiovascular: Positive: RRR, No Murmur Musculoskeletal Exam: Normal Neurological: Positive: Alert Psychological Exam: Normal Diagnostics - Laboratory Lab Results: Patient Name: ZAIN ALCANTAR Medical Record#: [id number] Ordering Physician: Jo Mckeon MD Acct.#: [id number] : 1945 Age: 74 Sex: M Location: [facility] Exam Date: 08/04/19 1102 ADM Status: REG ER Order Information: CHEST PA & LAT 2 VWS Accession Number: [id number] CPT: 02897 HISTORY: fever and cough x 4 days, malaise COMPARISONS: November 24, 2018 VIEWS: 4: Frontal dual-energy and lateral views of the chest. FINDINGS: CARDIOMEDIASTINAL SILHOUETTE: The cardiomediastinal silhouette is normal. KRAIG: The kraig are normal. PLEURA: The costophrenic angles are sharp. No pleural abnormalities are noted. LUNG PARENCHYMA: There is hyperinflation with flattening of the diaphragm and expansion of the AP diameter of the chest. ABDOMEN: The upper abdomen is clear. There is no subphrenic gas. BONES AND SOFT TISSUES: Degenerative changes are noted along the spine. OTHER: None. IMPRESSION: HYPERINFLATION, CONSISTENT WITH COPD. NO ACTIVE CARDIOPULMONARY DISEASE. <Electronically signed by Cheo Camarillo MD in OV> 08/04/19 1131 Dictated By: Cheo Camarillo MD Dictated Date/Time: 08/04/19 1131 Transcribed Date/Time: 08/04/19 113 Copy to: CC:Zain Bean MD; Jo Mckeon MD Imaging - [facility] [address] [place] [address] ph ([phone]) ph ([phone]) ([phone]) This report is only to be considered final once signed by the Provider(s) as displayed in the "<Electronically Signed by >" field (s). Absence of a signature indicates the report is in a draft status and still needs to be finalized. In the event this document was created by someone other than the signing Provider, the individual initiating the document will be listed in the "Entered by:" or "Dictated by:" irvin. 1 of 1 Respiratory Course/Dx - Course Course Of Treatment: amoxicillin for sinusitis, eye drops, follow up if no improvement. Followup with PMD re hyperinflation, but he does not have a hx to suggest COPD despite remote smoking. - Differential Dx/Diagnosis Differential Diagnosis/HQI/PQRI: Bronchitis, Lower Resp Infection, Sinusitis Provider Diagnosis: Sinusitis, Conjunctivitis Discharge ED - Sign-Out/Discharge Documenting (check all that apply): Patient Departure All imaging exams completed and their final reports reviewed: Yes - Discharge Plan Condition: Stable Disposition: HOME Prescriptions: Amoxicillin PO (*) [Amoxicillin 875 MG (*)] 875 mg PO BID #20 tab Polymyx/Trimethoprim OPTH* [Polytrim OPHTH*] 2 drop RIGHT EYE Q3H #1 btl Patient Education Materials: Sinusitis (ED) Referrals: [place] JON,Zain Snider [Primary Care Provider] - Additional Instructions: use eye drops for the infection in the right eye, which is consistent with a bacterial conjunctivitis. Use amosicillin for treatment of sinus infection. You should see a decrease in fever by 08/06/19. If you develop shortness of breath or chest pain, please go to the emergency room. For the nose bleeds, I suggest that you swab in a small amount of antibiotic ointment into the nasal passage, followed by a couple of squirts of saline spray which you can purchase in the pharmacy. - Billing Disposition and Condition Condition: STABLE Disposition: Home
== END 2019-08-04 12:08 | disposition home or self-care (01) ==
LOC: UCEAST 09:48
DX: J32.9 Chronic sinusitis, unspecified (principal); H10.9 Unspecified conjunctivitis; Z87.891 Personal history of nicotine dependence
CPT/HCPCS: 71046; 99212; A9270-GY; G0463

== ENCOUNTER 2020-10-09 09:02 | Inpatient (IN) ==
[2020-10-09] MEDS: Polymyx/Trimethoprim OPTH.SOL 1 BTL RIGHT EYE SCH ×5 (12:04→21:04)
[2020-10-09 12:12] LABS: Anion Gap 14 mmol/L (2-11); BUN/Creatinine Ratio 16.6 (8-20); Blood Urea Nitrogen 24 mg/dL (6-24); CO2 Carbon Dioxide 16 mmol/L (22-32); Calcium 9.1 mg/dL (8.6-10.3); Chloride 99 mmol/L (101-111); EGFR African American 57.6 (>60); EGFR Non-African American 47.6 (>60); Glucose 139 mg/dL (70-100); Magnesium 2.2 mg/dL (1.9-2.7); Sodium 129 mmol/L (135-145)
[2020-10-10] MEDS: Polymyx/Trimethoprim OPTH.SOL 1 BTL RIGHT EYE SCH ×7 (01:21→21:11)
[2020-10-10] MEDS: Multivitamins/Minerals TAB PO SCH (08:53)
[2020-10-10 10:26] LABS: BUN/Creatinine Ratio 20.5 (8-20); Calcium 9.3 mg/dL (8.6-10.3); EGFR African American 70.3 (>60); EGFR Non-African American 58.1 (>60)
[2020-10-10 11:41] LABS: Magnesium 1.9 mg/dL (1.9-2.7)
[2020-10-11] MEDS: Polymyx/Trimethoprim OPTH.SOL 1 BTL RIGHT EYE SCH ×4 (00:16→09:51)
[2020-10-11] MEDS ORDERED: Midazolam 5 mg/5 ml VIAL 1 mg/ml 5 ml VIAL (5 mg) ONE (07:26)
[2020-10-11] MEDS ORDERED: fentaNYL 100 mcg/2 ml 50 MCG/ML VIAL ONE (07:26)
[2020-10-11] MEDS ORDERED: Naloxone 0.4 mg VIAL 0.4 mg/ml 1 ml VIAL ONE (07:27)
[2020-10-11] MEDS ORDERED: Flumazenil 0.5 mg/5 ml 0.1 MG/ML 5 ml VIAL ONE (07:27)
[2020-10-11] MEDS: Multivitamins/Minerals TAB PO SCH (09:51)
[2020-10-11 10:32] LABS: BUN/Creatinine Ratio 18.2 (8-20); Calcium 9.6 mg/dL (8.6-10.3); EGFR African American 64.2 (>60); Potassium 4.1 mmol/L (3.5-5.0)
[2020-10-11 11:53] VITALS: BP 123/79
== END 2020-10-11 12:56 | disposition home or self-care (01) ==
LOC: MEDTELE 09:02
PROVIDERS: ADMIT Specialist; ATTEND Specialist